=== PATIENT | female | born 1995 | race Caucasian/White ===

== ENCOUNTER 2024-09-20 21:58 | Emergency (ER) | payer MEDICAID, SELFPAY ==
--- NOTE | 2024-09-20 22:07 | EDNOTE_ITS ---
ED Abdominal Pain RME/HPI General Chief Complaint: Abdominal Pain Pediatric Stated complaint: ABD PAIN,N/V Time seen by provider: 09/20/24 22:07 Arrival date/time: 09/20/24 21:58 RME / HPI RME / HPI narrative: This section includes all my notes and documentations, including HPI, PE, and ED course. Travis Naidu MD HPI: 29-year-old female here with several hours of severe upper abdominal pain and nausea. No fever. No urinary symptoms. No history of abdominal surgery. No other complaints. ROS: All negative except as documented in HPI. Physical Exam: General: Alert and oriented. In severe pain. Eyes: Conjunctivae and lids clear. ENT: No nasal congestion. Neck: Supple. Heart: RRR. Lungs: No respiratory distress. Good air movement. No rhonchi, wheezing, rales. Abdomen: Soft with epigastric and RUQ tenderness. Normal bowel sounds. No distension. No rebound or guarding. Back: No CVA tenderness. Skin: Warm and dry. Neuro: Alert and oriented X 3. I reviewed all diagnostic test results. My review of the abdominal CT report is cholelithiasis. My review of the GB ultrasound report is cholelithiasis. Blood tests and urine tests unremarkable. At this point, diagnoses include biliary colic with cholelithiasis. Treatment here included IV fluid and Zofran and Toradol and morphine. Significant improvement noted. Recommended more outpatient workup. Based on my best medical judgment, made decision no further evaluation or treatment indicated at this time. Patient understands and agrees to the discharge instructions customized and printed, see below. Discharge Instructions from Dr. Naidu: 1. After evaluation, your symptoms are due to gallstone(s).? You need gallbladder to help digest fatty foods. 2. So to prevent future attacks, avoid all fatty and oily and greasy and buttery and dairy foods.? This usually means take out and fast food restaurants. 3. Zofran for nausea/vomiting.? Tylenol codeine for severe pain.?? 4. See a private doctor on 09/21/2024 for recheck and further care. Ask for help seeing a general surgeon for elective surgery. 5. Seek immediate medical care with intolerable pain, fever, or with any concerns. Travis Naidu MD Related Data Previous Rx's ?Medication ?Instructions ?Recorded albuterol sulfate 90 mcg/actuation 2 puff inhalation Q 4HR PRN dyspnea 10/05/16 aerosol inhaler (ProAir HFA) #1 inh magnesium citrate 300 ml PO QDAY constipation #300 mL 02/24/19 polyethylene glycol 3350 17 gram 17 g PO QDAY constipa tion #1 ea 02/24/19 oral powder packet (Miralax) sodium phosphates 19 gram-7 118 ml DC QDAY PRN constip ation 02/24/19 gram/118 mL enema (Fleet Enema) #118 mL acetaminophen 300 mg-codeine 30 mg 2 tab PO Q8H PRN pa in #20 tabs 09/21/24 tablet ondansetron 4 mg disintegrating 4 mg PO TID PRN nausea and 09/21/24 tablet vomiting 30 days #10 tabs Allergies Allergy/AdvReac Type Severity Reaction Status Date / Time shrimp Allergy Mild LIP Verified 09/20/24 21:59 TINGLING bee venom protein (honey bee) AdvReac Mild SWELLING Verified 09/20/24 21:59 AT SITE Course Quality Measures none Orders Category Date Time Status Saline [Insert IV] NOW Care 09/20/24 22:[address] abdomen pelvis wo con Stat Exams 09/20/24 22:09 Completed US gall bladder Stat Exams 09/20/24 22:09 Completed Amylase Stat Lab 09/20/24 22:20 Completed BMP [Basic Metabolic Panel] Stat Lab 09/20/24 22:20 Completed CBC Stat Lab 09/20/24 22:20 Completed HCG Qualitative,Urine Stat Lab 09/20/24 22:16 Completed HCG,Qualitative Serum Stat Lab 09/20/24 22:20 Completed Lipase Stat Lab 09/20/24 22:20 Completed Liver Panel Stat Lab 09/20/24 22:20 Completed Magnesium Stat Lab 09/20/24 22:20 Completed UA, C/S IF [Urinalysis, C/S if Indicated] Stat Lab 09/20/24 22:16 Completed Ketorolac Inj [Toradol Inj] Med 09/20/24 22:08 Discontinued 30 mg IVP X1 ONE Morphine Inj Med 09/20/24 22:08 Discontinued 5 mg IVP X1 ONE Ondansetron Inj [Zofran Inj] Med 09/20/24 22:08 Discontinued 4 mg IV X1 ONE Sodium Chloride 0.9% 1000 ml [Ns] 1,000 ml Med 09/20/24 22:08 Discontinued IV 999 mls/hr Vital Signs Vital signs: Vital Signs Temperature 98 F 09/20/24 22:08 Pulse Rate 100 09/20/24 22:08 Respiratory Rate 22 H 09/20/24 22:08 Blood Pressure 155/91 H 09/20/24 22:08 Pulse Oximetry (%) 95 09/20/24 22:08 Oxygen Delivery Method Room Air 09/20/24 22:08 Abdominal Pain MDM Patient data External records reviewed:: [facility] previous records Clinical information provided by:: patient Social determinants that could affect healthcare access:: none Patient has the following chronic illnesses:: Gallstones How is presenting disease/condition affected by chronic disease/condition?: exacerbated by Evaluation data The following diagnostics were reviewed and interpreted by me:: lab results and radiology exam(s) Lab and/or radiology exams considered but not ordered:: None Interpretation Summary: Cholelithiasis Medications / Prescriptions Medications or Prescriptions considered but not ordered:: None Medication administrations:: Medication Administration History Discontinued Medications Sodium Chloride (Ns) 1,000 mls @ 999 mls/hr IV .Q1H1M ONE Stop: 09/20/24 23:08 Last Infusion: 09/20/24 23:53 Dose: Infused Documented By: Admin: 09/20/24 22:22 Dose: 999 mls/hr Documented By: JESSICA Ketorolac Tromethamine (Ketorolac Inj 30 Mg/Ml Vial) 30 mg IVP X1 ONE Stop: 09/20/24 22:09 Last Admin: 09/20/24 23:58 Dose: 30 mg Documented By: JESSICA Morphine Sulfate (Morphine Sulf Inj 10 Mg/Ml Vial) 5 mg IVP X1 ONE Stop: 09/20/24 22:09 Last Admin: 09/20/24 22:22 Dose: 5 mg Documented By: JESSICA Ondansetron HCl (Ondansetron Inj 2 Mg/Ml Inj 2 Ml) 4 mg IV X1 ONE; Protocol Stop: 09/20/24 22:09 Last Admin: 09/20/24 22:24 Dose: 4 mg Documented By: JESSICA IV fluid and Zofran and Toradol and morphine Consultations Consultation(s) initiated? (list below): No Diagnosis Differential diagnosis abdominal pain: acute appendicitis, calculus of kidney, constipation, diverticulitis, pancreatitis, small bowel obstruction and other (Biliary colic) Most likely diagnosis given after review of the tests above:: Biliary colic with cholelithiasis Admission Indicated Admission indicated?: not indicated Explain why admission is indicated or not indicated:: With significant improvement, there was no indication for admission. Admission Request Was there a request for admission?: No Disposition Plan Disposition Plan: Discharge Discharge Attestation Discharge Attestation: The patient and all family members were given an opportunity to ask questions and understood the discharge instructions. Discharge instructions specifically effects, indications for sooner follow up or return to the emergency department, and the expected course of current diagnosis. Patient condition: Stable Discharge Plan Plan Patient Disposition: HOME (Self Care) Prescriptions/Referrals Prescriptions/Med Rec: New acetaminophen-codeine 300-30 mg tablet 2 tab PO Q8H MDD 6 PRN (Reason: pain) Qty: 20 0RF ondansetron 4 mg tablet,disintegrating 4 mg PO TID PRN (Reason: nausea and vomiting) 30 Days Qty: 10 0RF No Action magnesium citrate solution 300 ml PO QDAY Qty: 300 0RF Rx Instructions: drink several large glasses of water after taking medication. polyethylene glycol 3350 [Miralax] 17 gram powder in packet 17 g PO QDAY Qty: 1 0RF Rx Instructions: drink several large glasses of water after taking medication. Fleet Enema 19-7 gram/118 mL enema 118 ml DC QDAY PRN (Reason: constipation) Qty: 118 0RF albuterol sulfate [ProAir HFA] 8.5 GM HFA aerosol inhaler 2 puff Inhalation Q4HR PRN (Reason: dyspnea) Qty: 1 0RF Referrals: No Primary/Family,Physician [Primary Care Provider] - In 1 week Problem List Clinical Impression: Gallstones Patient/Caregiver Discharge Instructions Discharge Activity: activity as tolerated Education Materials: ED Gallstones with Biliary Colic Additional Instructions: Discharge Instructions from Dr. Naidu: 1. After evaluation, your symptoms are due to gallstone(s).? You need gallbladder to help digest fatty foods. 2. So to prevent future attacks, avoid all fatty and oily and greasy and buttery and dairy foods.? This usually means take out and fast food restaurants. 3. Zofran for nausea/vomiting.? Tylenol codeine for severe pain.?? 4. See a private doctor on 09/21/2024 for recheck and further care. Ask for help seeing a general surgeon for elective surgery. 5. Seek immediate medical care with intolerable pain, fever, or with any concerns. Print Language: Bruneian Stand Alone Forms: [employer] Award Info., Patient Portal Info Letter
[2024-09-20 22:08] VITALS: BP 155/91; PULSE 100; RESP 22; TEMP 36.6; O2SAT 95; BMI 39.0
--- NOTE | 2024-09-20 22:09 | XR_ITS ---
Examination: Abdomen sonogram, Limited Date and time of exam: September 20, 2024 1002 hours INDICATIONS: Right upper abdominal pain and nausea beginning 3 days ago Technique: Real-time ng scale transabdominal sonographic images of the upper abdomen obtained. Findings: Multiple gallstones Gallbladder wall 0.3 cm no edema Common bile duct 0.3 cm Pancreatic head 2.7 cm Liver 17.4 cm fatty infiltration Normal hepatopedal blood episode Patent IVC IMPRESSION: Cholelithiasis, negative for cholecystitis Mild hepatomegaly fatty liver
--- NOTE | 2024-09-20 22:09 | XR_ITS ---
Examination: CT abdomen and pelvis without contrast. Coronal 3-D reconstructions. Sagittal 2-D reconstructions. Date and time of exam:September 20, 2024 11:31 PM INDICATIONS: Abdominal pain beginning 3 days ago CTDI: vol (mGy): 16 DLP: (mGycm): 935 Technique: Axial images of the abdomen have been obtained, 3 mm slice thickness Intravenous contrast material has not been administered. Low dose protocols were performed. One or more of the following dose reduction techniques were used; automated exposure control, adjustment of the mA and/or KV according to patient size, use of iterative reconstruction technique. Findings: No focal liver or splenic lesion. Cholelithiasis No pancreatic or adrenal mass No renal or ureteral calculi, no hydronephrosis Aorta normal size 10 mm fat-containing umbilical hernia Normal appendix No bowel obstruction No pelvic mass Intrauterine device in satisfactory position Bilateral intact Osseous structures intact L4-L5 3 mm central right paracentral disc bulge IMPRESSION: Cholelithiasis, negative for cholecystitis No renal or ureteral calculi, no hydronephrosis Normal appendix No bowel obstruction
[2024-09-20 22:20] LABS: Collection Type, Urine Clean Catch
[2024-09-20] MEDS: SODIUM CHLORIDE 0.9% 1000 ML 1,000 ML 999 ML IV (22:22)
[2024-09-20] MEDS: MORPHINE SULF INJ 10 MG/ML VIAL 5 MG IVP (22:22)
[2024-09-20] MEDS: ONDANSETRON INJ 2 MG/ML INJ 2 ML 4 MG IV (22:24)
[2024-09-20 22:29] LABS: Basophils % (Auto) 0 % (0-2.5); Eosinophils # (Auto) 0.2 Thou/mm3 (0.0-0.5); Eosinophils % (Auto) 2 % (0-10); Hematocrit 37.2 % (36.0-46.0); Hemoglobin 12.6 g/dL (12.0-16.0); Immature Granulocytes % (Auto) 1 % (0-0); Immature Granulocytes Auto 0.06 Thou/mm3 (0.00-0.00); Lymphocytes # (Auto) 2.4 Thou/mm3 (1.0-4.8); Lymphocytes % (Auto) 26 % (10-50); Mean Corpuscular HGB Conc 33.9 g/dl (31.0-37.0); Mean Corpuscular Hemoglobin 27.8 pg (25.0-35.0); Mean Corpuscular Volume 82 fL (80-100); Monocytes # (Auto) 0.7 Thou/mm3 (0.0-0.8); Monocytes % (Auto) 7 % (0-12); Neutrophils # (Auto) 5.7 Thou/mm3 (1.8-7.7); Neutrophils % (Auto) 63 % (37-80); Nucleated Red Blood Cell % 0 /100 WBC (0); Platelet Count 287 Thou/mm3 (140-440); RDW Standard Deviation 40.9 fL (36.4-46.3); Red Blood Count 4.54 Miln/mm3 (4.00-5.20)
[2024-09-20 22:49] LABS: Bilirubin,Urine Negative (Negative); Blood,Urine Negative (Negative); Clarity,Urine Clear (Clear/Hazy); Color,Urine Yellow (Lt Yel-Yel); Culture Indicated,Urine Not Indicated; Glucose, Urine Negative (Negative); Ketones,Urine Negative (Negative); Leukocyte Esterase,Urine Negative (Negative); Nitrite,Urine Negative (Negative); PH,Urine 6.5 (5.0-7.0); Protein,Urine Trace (Neg - Trace); RBC,Urine 1 /hpf (0-3); Specific Gravity,Urine 1.035 (1.001-1.035); Squamous Epithelial Cell,Urine 11 /hpf (0-5); WBC,Urine 2 /hpf (0-5)
[2024-09-20 22:59] LABS: HCG Qualitative,Urine Negative
[2024-09-20 23:03] LABS: HCG,Qualitative Serum Negative
[2024-09-20 23:13] LABS: Amylase 56 U/L (30-118); Anion Gap 8 (7-16); BUN/Creatinine Ratio 27 Ratio (12-20); Blood Urea Nitrogen 19 mg/dL (9-23); Calcium 8.7 mg/dL (8.3-10.6); Carbon Dioxide 25.1 mMol/L (20.0-31.0); Chloride 106 mMol/L (98-107); Creatinine (Component) 0.7 mg/dL (0.6-1.3); Estimated Creatinine Clearance 150.1 mL/min (>60); Glucose 99 mg/dL (74-106); Lipase 32 U/L (12-53); Magnesium 2.1 mg/dL (1.6-2.6); Osmolality,Calculated 279 (275-295); Potassium 3.7 mMol/L (3.4-5.1); Sodium 139 mMol/L (136-145); eGFR > 60 See Note
[2024-09-20] MEDS: KETOROLAC INJ 30 MG/ML VIAL IVP (23:58)
[2024-09-21 00:05] LABS: Alanine Aminotransferase 14 U/L (10-49); Alkaline Phosphatase 77 U/L (46-116); Aspartate Amino Transferase 17 U/L (0-34); Bilirubin,Direct 0.1 mg/dL (0.0-0.3); Bilirubin,Total 0.4 mg/dL (0.3-1.2); Total Protein 6.6 gm/dL (5.7-8.2)
[2024-09-21 00:17] VITALS: BP 141/94; PULSE 62; RESP 17; TEMP 36.6; O2SAT 97
[2024-09-21 00:56] VITALS: BP 140/64; PULSE 94; RESP 16; TEMP 36.7; O2SAT 98
== END 2024-09-21 00:57 | disposition home or self-care (01) ==
PROVIDERS: Emergency Provider Emergency Medicine
DX: K80.20 Calculus of gallbladder without cholecystitis without obstruction (principal)
CPT/HCPCS: 36415; 74176; 76705; 80048; 80076; 81001; 81025; 82150; 83690; 83735; 84703; 85025; 96361; 96374; 96375; 99284; J1885; J2270; J2405; J7030

== ENCOUNTER 2024-09-21 20:19 | Emergency (ER) | payer MEDICAID, SELFPAY ==
[2024-09-21 20:59] VITALS: BP 149/97; PULSE 68; RESP 20; TEMP 36.9; O2SAT 97; BMI 40.1
--- NOTE | 2024-09-21 21:28 | EDNOTE_ITS ---
ED Abdominal Pain RME/HPI General Chief Complaint: Abdominal Pain Stated complaint: ABD PAIN Time seen by provider: 09/21/24 20:35 Arrival date/time: 09/21/24 20:19 Source: patient Mode of arrival: ambulatory Limitations: no limitations RME / HPI RME / HPI narrative: 29-year-old female presents for evaluation of diffuse abdominal pain x 2 days. Patient was seen in the ED yesterday and diagnosed with gallstones. She reports persistent nausea, vomiting, and bodyaches. Patient denies fever, chills, diarrhea, hematemesis, chest pain, shortness of breath. MD complaint: abdominal pain Location: diffuse Related Data Previous Rx's ?Medication ?Instructions ?Recorded albuterol sulfate 90 mcg/actuation 2 puff inhalation Q 4HR PRN dyspnea 10/05/16 aerosol inhaler (ProAir HFA) #1 inh magnesium citrate 300 ml PO QDAY constipation #300 mL 02/24/19 polyethylene glycol 3350 17 gram 17 g PO QDAY constipa tion #1 ea 02/24/19 oral powder packet (Miralax) sodium phosphates 19 gram-7 118 ml CA QDAY PRN constip ation 02/24/19 gram/118 mL enema (Fleet Enema) #118 mL acetaminophen 300 mg-codeine 30 mg 2 tab PO Q8H PRN pa in #20 tabs 09/21/24 tablet ondansetron 4 mg disintegrating 4 mg PO TID PRN nausea and 09/21/24 tablet vomiting 30 days #10 tabs Allergies Allergy/AdvReac Type Severity Reaction Status Date / Time shrimp Allergy Mild LIP Verified 09/21/24 20:26 TINGLING bee venom protein (honey bee) AdvReac Mild SWELLING Verified 09/21/24 20:26 AT SITE ED Exam General Limitations: Present no limitations Course Orders Category Date Time Status Bedside COVID-19 Antigen Test NOW Care 09/21/24 21:25 Completed Bedside Influenza A&B Antigen Test NOW Care 09/21/24 21:26 Completed Insert IV NOW Care 09/21/24 21:25 Completed HCG Qualitative,Urine Stat Lab 09/21/24 22:41 Completed UA [Urinalysis] Stat Lab 09/21/24 22:41 Completed Ketorolac Inj [Toradol Inj] Med 09/21/24 21:28 Discontinued 30 mg IVP X1 ONE Lidocaine 2% Viscous [Xylocaine 2% Viscous] Med 09/21/24 21:25 Discontinued 15 ml PO X1 ONE Ondansetron Inj [Zofran Inj] Med 09/21/24 21:25 Discontinued 4 mg IV X1 ONE Sodium Chloride 0.9% 1000 ml [Ns] 1,000 ml Med 09/21/24 21:26 Discontinued IV 999 mls/hr mg Hyd/Al Hyd/Reina Susp [Maalox Susp] Med 09/21/24 21:25 Discontinued 30 ml PO X1 ONE Reevaluation(s) Reevaluation #1: Patient resting comfortably in room. Nausea and abdominal pain improved following medication and IV fluids. Stable for discharge with plan for outpatient follow-up. Time: 23:29 Vital Signs Vital signs: Vital Signs Temperature 98.4 F 09/21/24 20:59 Pulse Rate 68 09/21/24 20:59 Respiratory Rate 20 09/21/24 20:59 Blood Pressure 149/97 H 09/21/24 20:59 Pulse Oximetry (%) 97 09/21/24 20:59 Oxygen Delivery Method Room Air 09/21/24 20:59 Abdominal Pain MDM Medications / Prescriptions Medication administrations:: Medication Administration History Discontinued Medications Al Hydrox/Mg Hydrox/Simethicone (Mg Hyd/Al Hyd/Reina (Maalox Reg) Susp 30 Ml Udc) 30 ml PO X1 ONE Stop: 09/21/24 21:26 Last Admin: 09/21/24 22:03 Dose: 30 ml Documented By: LAKSHMI Sodium Chloride (Ns) 1,000 mls @ 999 mls/hr IV .Q1H1M ONE Stop: 09/21/24 22:26 Last Admin: 09/21/24 22:04 Dose: 999 mls/hr Documented By: LAKSHMI Ketorolac Tromethamine (Ketorolac Inj 30 Mg/Ml Vial) 30 mg IVP X1 ONE Stop: 09/21/24 21:29 Last Admin: 09/21/24 22:23 Dose: 30 mg Documented By: LAKSHMI Lidocaine HCl (Lidocaine Viscous 2% 15 Ml Udc) 15 ml PO X1 ONE Stop: 09/21/24 21:26 Last Admin: 09/21/24 22:03 Dose: 15 ml Documented By: LAKSHMI Ondansetron HCl (Ondansetron Inj 2 Mg/Ml Inj 2 Ml) 4 mg IV X1 ONE; Protocol Stop: 09/21/24 21:26 Last Admin: 09/21/24 22:04 Dose: 4 mg Documented By: LAKSHMI Discharge Plan Plan Patient Disposition: HOME (Self Care) Disposition Comment: stable Prescriptions/Referrals Prescriptions/Med Rec: No Action magnesium citrate solution 300 ml PO QDAY Qty: 300 0RF Rx Instructions: drink several large glasses of water after taking medication. polyethylene glycol 3350 [Miralax] 17 gram powder in packet 17 g PO QDAY Qty: 1 0RF Rx Instructions: drink several large glasses of water after taking medication. Fleet Enema 19-7 gram/118 mL enema 118 ml CA QDAY PRN (Reason: constipation) Qty: 118 0RF albuterol sulfate [ProAir HFA] 8.5 GM HFA aerosol inhaler 2 puff Inhalation Q4HR PRN (Reason: dyspnea) Qty: 1 0RF acetaminophen-codeine 300-30 mg tablet 2 tab PO Q8H MDD 6 PRN (Reason: pain) Qty: 20 0RF ondansetron 4 mg tablet,disintegrating 4 mg PO TID PRN (Reason: nausea and vomiting) 30 Days Qty: 10 0RF Referrals: No Primary/Family,Physician [Primary Care Provider] - In 1 week Problem List Clinical Impression: Abdominal pain, Pyuria Patient/Caregiver Discharge Instructions Other Activity Instructions:: Continue take medications as prescribed for abdominal pain. Hydrate well with p.o. fluids. Follow-up with primary care for reevaluation within the week. Take Tylenol or ibuprofen as needed for abdominal pain every 6 hours. Education Materials: Abdominal Pain Print Language: Japanese Stand Alone Forms: [employer] Award Info., Work/School Release, Patient Portal Info Letter PA/REHABILITATION SERVICES DIRECTOR Supervising Physician PA/REHABILITATION SERVICES DIRECTOR Supervising Physician: Dr. Naidu
[2024-09-21] MEDS: LIDOCAINE VISCOUS 2% 15 ML UDC PO (22:03)
[2024-09-21] MEDS: MG HYD/AL HYD/SIME (Maalox Reg) SUSP 30 ML UDC PO (22:03)
[2024-09-21] MEDS: SODIUM CHLORIDE 0.9% 1000 ML 1,000 ML 999 ML IV (22:04)
[2024-09-21] MEDS: ONDANSETRON INJ 2 MG/ML INJ 2 ML 4 MG IV (22:04)
[2024-09-21] MEDS: KETOROLAC INJ 30 MG/ML VIAL IVP (22:23)
[2024-09-21 22:58] LABS: Collection Type, Urine Clean Catch
[2024-09-21 23:09] LABS: Bilirubin,Urine Negative (Negative); Blood,Urine Negative (Negative); Clarity,Urine Clear (Clear/Hazy); Color,Urine Colorless (Lt Yel-Yel); Glucose, Urine Negative (Negative); Ketones,Urine Negative (Negative); Leukocyte Esterase,Urine Positive (Negative); Nitrite,Urine Negative (Negative); Protein,Urine Negative (Neg - Trace); RBC,Urine 1 /hpf (0-3); Specific Gravity,Urine 1.013 (1.001-1.035); Squamous Epithelial Cell,Urine 9 /hpf (0-5); Urobilinogen,Urine Negative mg/dL (0.0-1.0); WBC,Urine 2 /hpf (0-5)
[2024-09-21 23:13] LABS: HCG Qualitative,Urine Negative
== END 2024-09-22 00:06 | disposition home or self-care (01) ==
PROVIDERS: Physician Assistant; Emergency Provider Emergency Medicine
DX: K80.20 Calculus of gallbladder without cholecystitis without obstruction (principal); R82.81 Pyuria
CPT/HCPCS: 81001; 81025; 87400; 87811; 96374; 96375; 99284; J1885; J2405; J3490; J7030; A9270